=== PATIENT | male | born 1975 | race Caucasian/White ===

== ENCOUNTER 2024-07-12 09:08 | Emergency (ER) | payer MEDICARE, MEDICAID, SELFPAY ==
--- NOTE | ~2024-07-12 | XR_ITS ---
HISTORY: R great toe pain/swelling after injury COMPARISON: None TECHNIQUE: 3 views of the right foot were performed FINDINGS: No acute fracture or dislocation is appreciated. No significant degenerative disease is noted. The base of the fifth metatarsal is intact. Small calcaneal spur is noted. No significant soft tissue swelling is present. IMPRESSION: Degenerative disease without acute fracture. Reviewed, dictated and finalized at location A.
[2024-07-12 09:19] VITALS: BP 121/82; PULSE 79; RESP 16; TEMP 36.4; O2SAT 99
--- NOTE | 2024-07-12 11:56 | ED.LOWEXIN ---
HPI - Extremity Injury (Lower) General Chief Complaint: Extremity Injury, Lower Stated Complaint: right foot injury Time Seen by Provider: 07/12/24 11:09 History of Present Illness HPI Narrative: 49-year-old male presents to the emergency department for right foot pain for about a week. Patient states a week ago he stubbed his toe on along during the lunch her follow in his toe. He went to [facility] and had negative x-rays at that time. He believes his toe is dislocated. Has had redness and pain to the toe since. No history of gout. Denies fevers. Related Data Allergies Allergy/AdvReac Type Severity Reaction Status Date / Time divalproex sodium Allergy Verified 08/21/11 10:41 SERTRALINE HCL Allergy Uncoded 08/21/11 10:41 Review of Systems Review of Systems: All systems reviewed & are unremarkable except as noted in HPI and below Exam Narrative: GENERAL: Well-appearing, well-nourished, and in no acute distress. HEAD: Normocephalic, atraumatic. EYES: EOMI. ENT: Nares clear, no rhinorrhea or epistaxis. Mucous membranes moist. NECK: Supple. CHEST: Clear to auscultation. No respiratory distress. HEART: Regular rate and rhythm. No murmur heard. Normal peripheral pulses. EXTREMITIES: RLE: Erythema and warmth over the 1st MTP with mild tenderness, healing ecchymosis to the dorsum of the 1st and 2nd great toe with no remarkable tenderness. Patient able to wiggle toes, no obvious deformity. Cap refill less than 2. Sensation intact. No tenderness to remainder of foot and ankle. DP pulse 2 +. SKIN: Warm, dry, no rash. NEURO: No focal deficits. Alert and oriented x3 Course Vital Signs Vital signs: Vital Signs Temperature 97.5 F L 07/12/24 09:19 Pulse Rate 79 07/12/24 09:19 Respiratory Rate 16 07/12/24 09:19 Blood Pressure 121/82 07/12/24 09:19 Pulse Oximetry 99 07/12/24 09:19 Oxygen Delivery Room Air 07/12/24 09:19 Temperature 97.5 F L 07/12/24 09:19 Pulse Rate 79 07/12/24 09:19 Respiratory Rate 16 07/12/24 09:19 Blood Pressure 121/82 07/12/24 09:19 Pulse Oximetry 99 07/12/24 09:19 Oxygen Delivery Room Air 07/12/24 09:19 MDM - Extremity Injury (Lower) MDM Narrative Medical decision making narrative: 49-year-old male presents emergency department for 1 week of right foot pain. Patient stubbed his great toe about a week ago and had a lawn chair landed on his toe. Went to outside facility had negative x-rays. Presents today for persistent pain concerned the toe is dislocated. Triage vitals are stable. Exam is significant for erythema, warmth and mild tenderness over the 1st MTP consistent with gout versus cellulitis. No obvious deformity, he is neurovascularly intact. X-ray show no acute osseous findings. Patient was updated on results. Will start the patient on naproxen and Keflex to cover both gout and cellulitis. Low purine diet discussed. Discussed follow-up with PCP and return precautions. He is agreeable with the plan verbalized understanding. Discharged in stable condition. Discharge Plan Discharge Clinical Impression: [facility] Patient Disposition: Home Condition: Stable Instructions: Antibiotic Form, Low Purine Diet (ED), Gout (ED) Additional Instructions: Please take the antibiotics and naproxen as directed. Follow up with the primary care provider and referred you to. Return to the emergency department if you develop worsening redness or pain, fever 100.4 or greater, or other concerning symptoms. Patient Language: Argentine Prescriptions: New cephalexin 500 mg capsule 500 mg PO Q6H Qty: 28 0RF naproxen 500 mg tablet 500 mg PO BID PRN (Reason: pain) Qty: 20 0RF Follow-up/Referrals: Johnson Martinez MD [Physician] - UNKNOWN,DOCTOR [Primary Care Provider] -
[2024-07-12] MEDS: NAPROXEN 500 MG TABLET PO (12:05)
[2024-07-12] MEDS: CEPHALEXIN 500 MG CAPSULE PO (12:05)
[2024-07-12 12:11] VITALS: BP 130/78; PULSE 78; RESP 20; O2SAT 97
== END 2024-07-12 12:12 | disposition home or self-care (01) ==
PROVIDERS: Emergency Provider Physician Assistant
DX: M10.9 Gout, unspecified (principal)
CPT/HCPCS: 73630; 99283; A9270